=== PATIENT | female | born 1950 | race Caucasian/White ===

== ENCOUNTER 2017-11-19 06:20 | Day surgery (SDC) | payer OTHER ==
[2017-11-19] MEDS: BUPIVACAINE 0.25% (MPF) 30 ML INJ
[2017-11-19] MEDS ORDERED: EPHEDrine SULFATE 50 MG/5 ML SYG ×2 (07:00→09:25)
[2017-11-19] MEDS ORDERED: ONDANSETRON 4 MG INJ (09:02)
[2017-11-19] MEDS ORDERED: PROPOFOL 20 ML (09:02)
[2017-11-19] MEDS ORDERED: GLYCOPYRROLATE 0.4 MG INJ (09:02)
[2017-11-19] MEDS ORDERED: MIDAZOLAM 1 MG/ML 2 ML INJ (09:02)
[2017-11-19] MEDS ORDERED: NEOSTIGMINE 3 MG/3 ML SYRINGE (09:02)
[2017-11-19] MEDS ORDERED: ROCURONIUM 50 MG INJ (09:02)
[2017-11-19] MEDS ORDERED: METOCLOPRAMIDE 10 MG INJ (09:03)
[2017-11-19] MEDS ORDERED: ROPIVACAINE 0.5 % 30 ML VIAL (09:04)
[2017-11-19] MEDS ORDERED: CEFAZOLIN 1 GM INJ (09:24)
[2017-11-19] MEDS ORDERED: KETOROLAC 30 MG INJ (09:54)
[2017-11-19] MEDS ORDERED: METOPROLOL 5 MG INJ (09:59)
[2017-11-19] MEDS ORDERED: DIPHENHYDRAMINE 50 MG INJ IV (10:00)
[2017-11-19] MEDS ORDERED: HYDROCODONE/APAP (5/325) TAB PO (10:00)
[2017-11-19] MEDS ORDERED: OXYCODONE/ACETAMINOPHEN (5/325) TAB PO ×2 (10:00)
[2017-11-19] MEDS ORDERED: HYDROmorphONE 1 MG/5 ML IV SYRINGE IV ×2 (10:00)
[2017-11-19] MEDS: MEPERIDINE 25 MG INJ IV (10:25)
[2017-11-19] MEDS: HYDROmorphONE 1 MG/5 ML IV SYRINGE IV ×2 (10:39→10:46)
[2017-11-19] MEDS: ONDANSETRON 4 MG INJ IV (10:40)
== END 2017-11-19 12:13 | disposition home or self-care (01) ==
LOC: SDS 06:20
DX: K80.20 Calculus of gallbladder without cholecystitis without obstruction (principal); I10 Essential (primary) hypertension
CPT/HCPCS: 47562; 88304